=== PATIENT | female | born 1960 | race Caucasian/White ===

== ENCOUNTER → 2020-08-01 09:10 | Outpatient (BNVA) | payer OTHER, SELFPAY | PROVIDERS: Family Provider Family Medicine; PCP Family Medicine; Visit Provider Obstetrics & Gynecology | DX: Z01.419 Encounter for gynecological examination (general) (routine) without abnormal findings (principal); Z87.42 Personal history of other diseases of the female genital tract; N81.10 Cystocele, unspecified | CPT/HCPCS: 88175 ==

== ENCOUNTER 2022-01-18 10:03 | Outpatient (CLI) | payer OTHER, SELFPAY ==
--- NOTE | 2022-01-18 10:15 | MM_ITS ---
WS: [id number] SCREENING DIGITAL BREAST TOMOSYNTHESIS MAMMOGRAM WITH CAD HISTORY: Z12.39 - Encounter for other screening for malignant neop... COMPARISON: 06/22/2019 and 11/08/2017 Bilateral CC and MLO with tomosynthesis and synthetic mammography submitted. Computer aided detection analyzed. Breast composition: The breasts are heterogeneously dense, which may obscure small masses. New asymme try in the anterior RIGHT breast just posterior and to the RIGHT at the nipple measures 6 mm. On the lateral projection this may be just above the nipple line. Otherwise no abnormalities or change. MM/[place] [id number] IMPRESSION: BI-RADS: 0-Incomplete: Need additional imaging evaluation FOLLOW UP: Need Additional Imaging RIGHT breast: Spot compression views (CC and MLO). True ML. Ultrasound to follo w if abnormality persists.
== END 2022-01-18 10:04 | disposition home or self-care (01) ==
LOC: RAD 10:04
PROVIDERS: PCP Family Medicine; Visit Provider Obstetrics & Gynecology
DX: Z12.31 Encounter for screening mammogram for malignant neoplasm of breast (principal)
CPT/HCPCS: 77063; 77067

== ENCOUNTER 2022-03-15 08:59 | Outpatient (CLI) | payer OTHER, SELFPAY ==
--- NOTE | 2022-03-15 09:15 | US_ITS ---
WS: [id number] Right breast ultrasound, 03/15/2022 Clinical Data: R92.8 - Other abnormal and inconclusive findings on diagn... Comparison: None. Findings: The periareolar region demonstrated no abnormalities. Only mammary ducts could be seen. There were no masses or cysts. US/US breast RT limited* [id number] Impression: 1. Negative right breast periareolar ultrasound. 2. Annual screening mammograms. BIRADS: 2-Benign FOLLOW UP: 1 Year Follow-up
--- NOTE | 2022-03-15 09:15 | MM_ITS ---
WS: [email or web address] Right breast diagnostic 3D tomosynthesis digital mammogram, 03/15/2022 Clinical Data: R92.8 - Other abnormal and inconclusive findings on diagn... Comparison: 01/18/2022, 06/22/2019, 11/08/2017, 01/03/2011. Findings: Right breast CC compression and MLO compression were done. A right ML view was performed. In the oumar areolar region there were no distinct masses. Only normal breast tissue and a normal nipple could be seen. MM/[place] [id number] Impression: 1. Negative views of the right periareolar region of the right breast. 2. Right breast ultrasound will be performed. BIRADS: 2-Benign FOLLOW UP: Need Additional Imaging The CAD color checker was used.
== END 2022-03-15 09:00 | disposition home or self-care (01) ==
PROVIDERS: PCP Family Medicine; Visit Provider Obstetrics & Gynecology
DX: R92.8 Other abnormal and inconclusive findings on diagnostic imaging of breast (principal)
CPT/HCPCS: 76642; 77061

== ENCOUNTER 2024-06-15 07:37 | Outpatient (CLI) | payer OTHER, SELFPAY ==
--- NOTE | 2024-06-15 07:50 | MM_ITS ---
WS: [id number] SCREENING DIGITAL BREAST TOMOSYNTHESIS MAMMOGRAM WITH CAD HISTORY: SCREENING COMPARISON: 03/15/2022, 01/18/2022, 01/03/2011 Bilateral CC and MLO with tomosynthesis and synthetic mammography submitted. Computer aided detection analyzed. Breast composition: The breasts are heterogeneously dense, which may obscure small masses. New partia lly obscured high density mass measuring 6 x 7 x 6 mm in the medial inferior RIGHT breast at a middle depth. The remaining breasts are stable. MM/MM scr tomosynthesis [id number] IMPRESSION: BI-RADS: 0 - Incomplete: Need additional imaging evaluation FOLLOW UP: Need Additional Imaging RIGHT breast: Spot compression views (CC and MLO). True ML. Ultrasound to follo w if abnormality persists.
== END 2024-06-15 07:38 | disposition home or self-care (01) ==
PROVIDERS: PCP Family Medicine; Visit Provider Family Medicine
DX: Z12.31 Encounter for screening mammogram for malignant neoplasm of breast (principal); R92.333 Mammographic heterogeneous density, bilateral breasts; N63.14 Unspecified lump in the right breast, lower inner quadrant
CPT/HCPCS: 77063; 77067

== ENCOUNTER 2025-03-30 08:38 | Day surgery (SDC) | payer OTHER, SELFPAY ==
[2025-03-30 08:51] VITALS: BP 142/90; PULSE 92; RESP 18; TEMP 36.1; O2SAT 97; BMI 20.1
--- NOTE | 2025-03-30 08:59 | ANES.PREANE2 ---
Pre-Anesthetic Assessment Height/Weight: Height 1.68 m Weight 56.699 kg Temp Pulse Resp BP Pulse Ox O2 Del Method 97 F L 92 18 142/90 97 Room Air 03/30/25 08:51 03/30/25 08:51 03/30/25 08:51 03/30/25 08:51 03/30/25 08:51 03/30/25 08:51 Preop Diagnosis: screening Operation Date: 03/30/25 10:00 Proposed Procedures p Colonoscopy [id number] Z12.11(Not Applicable) - Clint Barkley MD Familial anesthetic complications: none Was Beta Rachid taken within 24 hours: N/A Was Clonidine taken within 24 hours: N/A Last intake: Intake Last Liquid Date 03/29/25 Last Liquid Time 23:59 Last Solid Date 03/28/25 Last Solid Time 17:00 Social No alcohol and No tobacco Exam alert and oriented x 3 Airway Submandibular: within normal limits Cervical ROM: within normal limits Mallampati: Class I Dentition: full History/ROS No significant complaints Anesthetic Plan ASA status: 1 Anesthesia: Anesthesia Evaluation and MAC Risk of > 500 ml blood loss (7ml/kg in children): No Medications/Allergies Home Medications ?Medication ?Instructions ?Recorded ?Confirmed ?Last Taken ?Type No Known Home Medications 02/18/25 03/24/25 Unknown History Allergies Allergy/AdvReac Type Severity Reaction Status Date / Time No Known Allergies Allergy Verified 02/18/25 10:19 [facility] Anesthesia Medical History Family history of rectal cancer No pertinent past medical history Denies diabetes, asthma, hypertension, seizures, DVT/PE PCP: Dr. Hyde Surgical History S/P hysterectomy Vaginal hysterectomy performed by Dr. Avalos at the age of 39 for vaginal prolapse and cervical abnormalities. She was told after the hysterectomy that she had no cancer or precancer. S/P tonsillectomy as a child H/O umbilical hernia repair Done at the age of 1-year-old. She states her belly button is largely absent. She is not sure of mesh was used. S/P tubal ligation procedure done via the umbilicus. Family History Grandfather Stroke paternal Sister Anal cancer Breast cancer diagnosed in her 40s, followed by lymph node removal Father Hypertension Hyperlipidemia Heart disease Mother Hyperlipidemia Diabetes Heart disease Grandmother Breast cancer paternal, diagnosed in her 60s Denies family history of Colon cancer Ovarian cancer Anesthesia complication Bleeding disorder Uterine cancer Social History Smoking and tobacco/nicotine status: never used tobacco/nicotine Substance/Drug Use: never
--- NOTE | 2025-03-30 09:13 | W.PM.OPSFHP ---
Same Day Surgery H&P Indication for Procedure/HPI DATE OF PROCEDURE: March 30, 2025 CHIEF COMPLAINT/INDICATIONFOR SURGICAL PROCEDURE: screening colonoscopy PREOP DIAGNOSIS: screening colonoscopy PLANNED PROCEDURE: Operation Date: 03/30/25 10:00 Proposed Procedures p Colonoscopy [id number] G0105 Z12.11(Not Applicable) - Clint Barkley MD Medications/Allergies* Home Medications ?Medication ?Instructions ?Recorded ?Confirmed ?Type No Known Home Medications 02/18/25 03/24/25 History Allergies/Adverse Reactions Allergy/AdvReac Type Severity Reaction Status Date / Time No Known Allergies Allergy Verified 02/18/25 10:19 Current Medications: Generic Name Dose Route Start Last Admin Trade Name Freq PRN Reason Stop Dose Admin Sodium Chloride 1,000 mls @ 15 mls/hr 03/30/25 08:43 03/30/25 09:04 Sodium Chloride 0.9% IV 03/31/25 08:42 15 mls/hr .Q24H PRN Administration COLONOSCOPY FLUIDS Pertinent History/Comorbid Conditions* Medical History (Updated 02/16/25 @ 13:14 by Tish Khan APN, SEAN) Family history of rectal cancer No pertinent past medical history Denies diabetes, asthma, hypertension, seizures, DVT/PE PCP: Dr. Hyde Surgical History (Updated 08/01/20 @ 11:46 by Diallo Dhillon MD) S/P hysterectomy Vaginal hysterectomy performed by Dr. Avalos at the age of 39 for vaginal prolapse and cervical abnormalities. She was told after the hysterectomy that she had no cancer or precancer. S/P tonsillectomy as a child H/O umbilical hernia repair Done at the age of 1-year-old. She states her belly button is largely absent. She is not sure of mesh was used. S/P tubal ligation procedure done via the umbilicus. Family History (Updated 12/18/21 @ 12:53 by Tish Hooker RN) Diabetes Mother Heart disease Father Mother Hyperlipidemia Father Mother Breast cancer Sister diagnosed in her 40s, followed by lymph node removal Grandmother paternal, diagnosed in her 60s Anal cancer Sister Hypertension Father Stroke Grandfather paternal Denies family history of Colon cancer Ovarian cancer Anesthesia complication Bleeding disorder Uterine cancer Social History Smoking and tobacco/nicotine status: never used tobacco/nicotine Substance/Drug Use: never Pertinent Exam Findings alert, oriented x 3, clear to auscultation bilaterally, regular rate & rhythm and procedure specific exam findings abdomen soft, nt, nd Recommendations Risks and benefits of procedure reviewed and Patient/family agree to proceed Surgery/Procedure today Coding Level of Care Code Acute Code for Chg Fwd
--- NOTE | 2025-03-30 09:21 | PC.NURSE ---
cecum time 0947
[2025-03-30 09:35] VITALS: BP 92/58; PULSE 90; RESP 18; TEMP 36.2; O2SAT 100
--- NOTE | 2025-03-30 09:38 | ANE.PACU2 ---
Inpatient post-anesthesia follow up: Airway intact: Yes Vital signs: Temperature 97.1 F Pulse Rate 90 Respiratory Rate 18 Blood Pressure 92/58 Pulse Oximetry 100 Oxygen Delivery Me thod Room Air Oxygen Flow Rate Fraction of Inspir ed Oxygen Hydration adequate: Yes Nausea and vomiting: No Pain level: 1 Mental status: Baseline
[2025-03-30 09:56] VITALS: BP 118/67; PULSE 69; RESP 18; O2SAT 98
== END 2025-03-30 09:57 | disposition home or self-care (01) ==
PROVIDERS: PCP Family Medicine; Visit Provider Student in an Organized Health Care Education/Training Program
PROC: 0DJD8ZZ Inspection of Lower Intestinal Tract, Via Natural or Artificial Opening Endoscopic (ICD-10-PCS; CPT 45378; principal; 2025-03-30 10:00)
DX: Z12.11 Encounter for screening for malignant neoplasm of colon (principal); K63.5 Polyp of colon
CPT/HCPCS: 45385; 88305; J2704; J7030

== ENCOUNTER 2025-06-21 12:40 | Outpatient (CLI) | payer OTHER, SELFPAY ==
--- NOTE | 2025-06-21 12:40 | MM_ITS ---
WS: [email or web address] BILATERAL 3D TOMOSYNTHESIS DIGITAL SCREENING MAMMOGRAPHY WITH CAD CLINICAL INFORMATION: Z12.31 - Encounter for screening mammogram for malignant ... HISTORY: Screening mammogram. No current complaints. COMPARISON: 2023 TECHNIQUE: Bilateral CC and MLO views. FINDINGS: The breasts are composed of heterogeneous fibroglandular density tissue, which can limit the detection of small underlying mass lesions. No suspicious mass, asymmetry, calcifications, or architectural distortion. No evidence of malignancy. Stable nodule subareolar RIGHT breast previously assessed 2021 MM/MM [facility] tomosynthesis [id number] IMPRESSION: DENSITY: The breasts are heterogeneously dense, which may obscure small masses. BI-RADS: 2 - Benign FOLLOW UP: 1 Year Follow-up Recommend return to annual screening mammography.
--- NOTE | 2025-06-21 13:00 | XR_ITS ---
WS: [email or web address] SCREENING DEXA SCAN [employer] CLINICAL INFORMATION: Z78.0 - Asymptomatic menopausal state COMPARISON: None. FINDINGS: The L1-L4 bone mineral density measures 0.849 g/cm2. This corresponds to a T score score of -2.8 and Z score of -0.9. Left femoral neck bone mineral density measures 0.843 g/cm2. This corresponds to a T score of -1.3 and Z score of 0.0. Right femoral neck bone mineral density measures 0.845 g/cm2. This corresponds to a T score -1.3of and Z score of 0.1. Mean femoral neck bone mineral density measures 0.844 g/cm2. This corresponds to a T score of -1.3 and Z score of 0.1. XR/XR DEXA axial skeleton* [id number] IMPRESSION: Osteoporosis lumbar spine. Osteopenia femoral necks. Patient's FRAX calculated 10 year probability for major osteoporotic fracture i s 9.5% and osteoporotic hip fracture is 1.6%.
== END 2025-06-21 12:41 | disposition home or self-care (01) ==
LOC: RAD 12:41
PROVIDERS: PCP Family Medicine; Visit Provider Nurse Practitioner Women's Health
DX: Z12.31 Encounter for screening mammogram for malignant neoplasm of breast (principal); Z13.820 Encounter for screening for osteoporosis; Z78.0 Asymptomatic menopausal state; R92.333 Mammographic heterogeneous density, bilateral breasts; R92.323 Mammographic fibroglandular density, bilateral breasts; N63.41 Unspecified lump in right breast, subareolar; M85.89 Other specified disorders of bone density and structure, multiple sites
CPT/HCPCS: 77063; 77067; 77080